=== PATIENT | female | born 1980 | race African-American/Black ===

== ENCOUNTER 2017-06-24 09:16 | Emergency (ER) | payer MEDICAID ==
[~2017-06-24] VITALS: Ht 170.2 cm; Wt 63.5 kg
[2017-06-24 10:02] LABS: Eosinophils # (auto) 0 uL; Monocytes # (auto) 0.3 uL; Neutrophils # (auto) 2.4 uL; Nucleated Red Blood Cells % 0.1 %
[2017-06-24 10:06] LABS: Basophils # (auto) 0 uL; Hematocrit 29.4 % (36.0-46.0); Hemoglobin 8.9 g/dL (12.2-16.2); Lymphocytes # (auto) 1.4 uL; Lymphocytes % (auto) 32.6 % (10.0-50.0); Mean Corpuscular Hemoglobin 19.2 pg (28.0-32.0); Mean Corpuscular Hgb Conc. 30.2 g/dL (32.0-36.0); Mean Corpuscular Volume 63.7 fL (80.0-100.0); Monocytes % (auto) 7.4 % (0.0-12.0); Platelet Count (auto) 332 10^3/uL (140-450); Red Blood Cells 4.62 10^6/uL (4.0-5.20); White Blood Cell 4.1 10^3/uL (4.4-10.8)
[2017-06-24 10:30] LABS: Albumin 3.7 g/dL (3.4-5.0); Calcium 8.5 mg/dL (8.5-10.1); Potassium 3.7 mmol/L (3.5-5.1)
[2017-06-24 10:34] LABS: BUN/Creatinine Ratio 8.5; Bilirubin, Total 0.5 mg/dL (0.2-1.0); Total Protein 7.7 g/dL (6.4-8.2)
[2017-06-24 10:48] LABS: Urine Bacteria NONE SEEN /hpf (None Seen); Urine Mucus FEW (None Seen); Urine WBC 38 /hpf (0 - 5); Urine WBC Clumps PRESENT /hpf (None Seen)
[2017-06-24 10:56] LABS: Urine Specific Gravity 1.007 (1.001-1.035)
[2017-06-24] MEDS ORDERED: FERROUS SULFATE 300 MG/5 ML ORAL LIQ GT ONE (13:00)
[2017-06-24] MEDS ORDERED: FERROUS SULFATE 325 MG TAB PO ONE (13:45)
[2017-06-24 14:27] VITALS: BP 122/76
== END 2017-06-24 15:03 | disposition home or self-care (01) ==
LOC: ER 09:21
DX: D64.9 Anemia, unspecified (principal); N39.0 Urinary tract infection, site not specified; R42 Dizziness and giddiness
CPT/HCPCS: 36415; 80053; 81001; 84702; 85025; 86850; 86900; 86901; 93005; 99285; J7030